=== PATIENT | male | born 1985 | race Caucasian/White ===

== ENCOUNTER 2023-03-20 21:27 | Emergency (ER) | payer MEDICAID | END 2023-03-21 00:03 | disposition left against medical advice (07) | LOC: ER 21:28 | DX: Z76.0 Encounter for issue of repeat prescription (principal); Z53.21 Procedure and treatment not carried out due to patient leaving prior to being seen by health care provider ==

== ENCOUNTER 2023-06-16 10:34 | Emergency (ER) | payer MEDICAID ==
[~2023-06-16] VITALS: Ht 188 cm; Wt 86.4 kg
[2023-06-16 10:40] VITALS: BP 142/103; PULSE 141; RESP 18; TEMP 98.6; O2SAT 95
[2023-06-16 11:02] LABS: BASOPHILS # (AUTO) 0.1 X10'3 (0-0.2); BASOPHILS % (AUTO) 1.1 % (0-1); EOSINOPHILS # (AUTO) 0.3 X10'3 (0-0.9); EOSINOPHILS % (AUTO) 2.5 % (0-6); HEMATOCRIT 42.8 % (42.0-52.0); HEMOGLOBIN 14.8 g/dl (14.0-17.9); LYMPHOCYTES # (AUTO) 1.8 X10'3 (1.1-4.8); LYMPHOCYTES % (AUTO) 17.3 % (21-51); MEAN CORPUSCULAR HEMOGLOBIN 30.7 PG (27.0-31.0); MEAN CORPUSCULAR HGB CONC 34.6 g/dL (33.0-36.5); MEAN PLATELET VOLUME 8.5 FL (7.4-10.4); MONOCYTES # (AUTO) 0.7 X10'3 (0-0.9); MONOCYTES % (AUTO) 6.8 % (2-12); NEUTROPHILS # (AUTO) 7.4 X10'3 (1.8-7.7); NEUTROPHILS % (AUTO) 72.3 % (42-75); PLATELET COUNT 312 X10'3 (140-440); RED CELL DISTRIBUTION WIDTH 13.5 % (11.5-14.5); WHITE BLOOD COUNT 10.2 X10'3 (4.5-11.0)
[2023-06-16 11:11] LABS: ALANINE AMINOTRANSFERASE 52 U/L (12-78); ALBUMIN 2.5 G/DL (3.4-5.0); ALBUMIN/GLOBULIN RATIO 0.5 (1.1-1.5); ALKALINE PHOSPHATASE 61 IU/L (46-116); ANION GAP 5 (8-16); ASPARTATE AMINO TRANSFERASE 58 U/L (10-37); BILIRUBIN,TOTAL 0.7 MG/DL (0.1-1.0); BLOOD UREA NITROGEN 19 MG/DL (7-18); BUN/CREATININE RATIO 24.4 (10.0-20.0); CALCIUM 9.6 MG/DL (8.5-10.1); CHLORIDE 97 MMOL/L (99-107); CREATININE 0.78 MG/DL (0.60-1.10); GLUCOSE 117 MG/DL (70-104); POTASSIUM 3.8 MMOL/L (3.5-5.1); SODIUM 135 MMOL/L (135-145); TOTAL PROTEIN 7.6 G/DL (6.4-8.2); eCRCL 152 ML/MIN; eGFR > 90 ML/MIN
[2023-06-16 11:18] LABS: PRO BRAIN NATRIURETIC PEPTIDE 148 PG/ML (0-125)
[2023-06-16] MEDS ORDERED: normal saline 1000ml 1,000 ML IV ONE (12:10)
== END 2023-06-16 12:20 | disposition left against medical advice (07) ==
LOC: ER 10:34
DX: J40 Bronchitis, not specified as acute or chronic (principal)
CPT/HCPCS: 71045; 80053; 83880; 84484; 85025; 93005; 99285

== ENCOUNTER 2024-10-17 02:06 | Emergency (ER) | payer MEDICAID ==
[~2024-10-17] VITALS: Ht 188 cm; Wt 72.5 kg
[2024-10-17 02:07] VITALS: BP 126/96; PULSE 112; RESP 15; O2SAT 96
[2024-10-17] MEDS ORDERED: SULF1TAB49 PO (02:28)
[2024-10-17] MEDS: sulfamethoxazole/trimethoprim DS (800/160mg) tablet PO ONE (02:36)
[2024-10-17 02:38] VITALS: TEMP 98.6
== END 2024-10-17 02:41 | disposition home or self-care (01) ==
LOC: ER 02:07
DX: L73.9 Follicular disorder, unspecified (principal)
CPT/HCPCS: 99283